=== PATIENT | female | born 1940 | race Caucasian/White ===

== ENCOUNTER → 2017-09-21 | Outpatient (CLI) | payer MEDICARE | LOC: GMAB 11:00 | PROVIDERS: ATTEND Family Medicine | DX: Z79.899 Other long term (current) drug therapy (principal) ==

== ENCOUNTER → 2017-10-11 | Outpatient (CLI) | payer MEDICARE ==
--- NOTE | 2017-10-12 11:19 | US ---
THYROID ULTRASOUND CLINICAL INFORMATION: Thyroid nodule. TECHNIQUE: Routine transcutaneous scannin-D and Doppler modes. COMPARISON: CT neck soft tissue with IV contrast 03/12/2014. FINDINGS: Thyroid size: Right 4.4 x 2.3 x 1.7 cm. Left 3.4 x 1.9 x 1.9 cm. Isthmus 0.79 mm width. Texture: Heterogeneous. Estimated total number of nodules >/=1 cm: 2 Number of spongiform nodules >/=2 cm not described below (TR1): 0 Number of mixed cystic and solid nodules >/=1.5 cm not described below (TR2): 0 Nodule #: 1 Maximum size: 1.7 cm; All dimensions 1.2 x 1.1 cm Location: right; mid Composition: solid/almost completely solid (2) Echogenicity: hypoechoic (2) Shape: not [id number] (0) Margins: lobulated/irregular (2) Echogenic foci: none (0) ACR TI-RADS total points: 6. ACR TI-RADS risk category: TR4 (4-6 points) No comparison ultrasound examination. ACR TI-RADS recommendation: Ultrasound-guided fine needle aspiration Nodule #: 2 Maximum size: 0.8 cm; All dimensions 0.6 x 0.6 cm Location: right; upper Composition: solid/almost completely solid (2) Echogenicity: hypoechoic (2) Shape: not [id number] (0) Margins: smooth (0) Echogenic foci: none (0) ACR TI-RADS total points: 4. ACR TI-RADS risk category: TR4 (4-6 points) No comparison ultrasound examination. ACR TI-RADS recommendation: No further follow-up Nodule #: 3 Maximum size: 1.5 cm; All dimensions 1.3 x 0.7 cm Location: isthmus; mid Composition: solid/almost completely solid (2) Echogenicity: hypoechoic (2) Shape: not [id number] (0) Margins: smooth (0) Echogenic foci: none (0) ACR TI-RADS total points: 4. ACR TI-RADS risk category: TR4 (4-6 points) No comparison ultrasound examination. ACR TI-RADS recommendation: Ultrasound-guided fine needle aspiration Soft tissue around the thyroid gland unremarkable with no distinct solid mass or cyst, no parenchymal edema or large calcifications. Normal Doppler vascularity. IMPRESSION: 1. Hypoechoic solid nodule in the mid right lobe with smooth margins, parallel orientation, and no calcifications. ACR TI-RADS risk category TR 4. Due to size greater than 1.5 cm, ultrasound-guided fine-needle aspiration sampling is recommended. Please see below.* 2. Hypoechoic solid nodule in the isthmus with smooth margins, parallel orientation, and no calcifications. ACR TI-RADS risk category TR 4. Due to size 1.5 cm. Ultrasound-guided fine-needle aspiration sampling is recommended. 3. Normal ultrasound of the soft tissue around the thyroid gland. *ACR TI-RADS recommendations: TR5 (>/=7 points) - FNA if >/=1 cm, follow-up if 0.5 - 0.9 cm every year for 5 years TR4 (4-6 points) - FNA if >/=1.5 cm, follow-up if 1 - 1.4 cm in 1, 2, 3 and 5 years TR3 (3 points) - FNA if >/=2.5 cm, follow -up if 1.5 - 2.4 cm in 1, 3 and 5 years TR2 (2 points) and TR1 (0 points) - No FNA or follow-up * ACR TI-RADS recommends that no more than two nodules with the highest ACR TI-RADS total point should be biopsied and no more than four nodules should be followed. Electronically signed by: Karel Dickson MD 10/12/2017 11:17 AM CDT
--- NOTE | 2017-10-12 12:53 | MAM ---
EXAM DESCRIPTION: 3D Screening BILATERAL : Digital Mammography. CLINICAL HISTORY: 77 years Female SCREENING . No complaints. No family history breast cancer. Postmenopausal. HRT 5 or more years ago. Possible surgery right breast previously.. COMPARISON: 2-D digital screening bilateral study 05/16/2016. Thyroid ultrasound on this visit. Reports from prior examinations also reviewed. TECHNIQUE: Bilateral CC and MLO projection full-field images, 3-D tomosynthesis digital mammographic technique. Also bilateral synthesized CC/ MLO full-field images. CAD not utilized. FINDINGS: The breast parenchymal density pattern is: Heterogeneously dense breast tissue, which may obscure small masses. No skin thickening or nipple retraction bilateral vascular calcifications. Bilateral solitary microcalcifications and coarse calcifications. No focal, stellate mass or density, focal asymmetry , and no suspicious microcalcifications bilaterally. Stable mammograms compared to prior study, taking into account differences in mammographic technique IMPRESSION: BI-RADS CATEGORY: 2 - BENIGN FINDINGS. FOLLOW UP: Routine digital bilateral screening, one year interval from October 2017. Written communication explaining the IMPRESSION and follow-up, will be mailed to the patient and referring health care provider. According to the [employer], yearly mammograms are recommended starting at age 40 and continuing as long as a woman is in good health. Any breast change noted on a breast self-exam should be reported promptly to the patient's healthcare provider. Breast MRI is recommended for women with an approximately 20-25% or greater lifetime risk of breast cancer, including women with a strong family history of breast or ovarian cancer and women who have been treated for Hodgkin's disease. A negative mammographic report should not delay tissue diagnosis in patients with significant clinical history or physical findings. Extremely dense breast tissue limits the sensitivity of digital mammography. Electronically signed by: Karel Dickson MD 10/12/2017 12:51 PM CDT
== END ==
LOC: US 08:57
PROVIDERS: ATTEND Family Medicine
DX: Z12.31 Encounter for screening mammogram for malignant neoplasm of breast (principal); E04.1 Nontoxic single thyroid nodule

== ENCOUNTER → 2018-11-27 | Outpatient (CLI) | payer MEDICARE ==
--- NOTE | 2018-12-03 16:22 | MAM ---
EXAM DESCRIPTION: 3D Screening BILATERAL : Digital Mammography. CLINICAL HISTORY: 78 years Female ANNUAL SCREENING . No complaints. No personal or family history of breast cancer. Childbirth. Postmenopausal. HRT 5 or more years ago. Prior benign cyst aspiration. Lifetime risk of developing breast cancer (Tyrer-Cuzick model)(%): 2.6. COMPARISON: Bilateral screening digital breast tomosynthesis 10/11/2017. 2-D digital screening bilateral mammography 05/16/2016.. TECHNIQUE: Bilateral CC and MLO projection full-field images, digital tomosynthesis mammographic technique. Bilateral digital 2-D full-field MLO images. CAD not available for tomosynthesis or 2-D images. FINDINGS: The breast parenchymal density pattern is: Extremely dense breast tissue, which lowers the sensitivity of mammography. No skin thickening or nipple retraction. Multiple bilateral solitary microcalcifications. Bilateral vascular calcifications. Increase in fibroglandular densities bilaterally more right than left in relationship to the fatty tissues. No new focal, stellate mass or density, focal asymmetry , and no suspicious microcalcifications bilaterally. IMPRESSION: BI-RADS CATEGORY: 0 - INCOMPLETE- Need additional imaging evaluation. FOLLOW-UP: Recall for additional imaging: Bilateral diagnostic full field LM images. Targeted bilateral breast ultrasound if indicated by diagnostic images.. Written communication concerning the IMPRESSION and Follow-up, will be mailed to the patient and referring health care provider. Electronically signed by: Karel Dickson MD 12/03/2018 4:20 PM CDT
== END ==
LOC: GMAE 09:30
PROVIDERS: ATTEND Family Medicine
DX: Z12.31 Encounter for screening mammogram for malignant neoplasm of breast (principal); E04.1 Nontoxic single thyroid nodule; Z79.899 Other long term (current) drug therapy

== ENCOUNTER → 2018-12-19 | Outpatient (CLI) | payer MEDICARE ==
--- NOTE | 2018-12-20 20:06 | MAM ---
EXAM DESCRIPTION: 3D Diagnostic, Bilateral (accession [id number]), Breast,Bilateral (accession [id number]): Ultrasound CLINICAL HISTORY: 78 yearsFemaleABN MAMMO . Patient complains of palpable mass between the breast. Bilateral breast showing increased fibroglandular densities compared to the previous screening study in 2016. Patient has lost 30-35 pounds since the prior mammogram in 2016. COMPARISON: Bilateral screening digital breast tomosynthesis 06/29/2018. TECHNIQUE: Bilateral LM projection full-field images, digital mammographic tomosynthesis technique. Craniocaudal cleavage view bilateral breast. CAD not available . Transcutaneous scanning of the mid chest and cleavage between the breasts utilizing de leon-scale and Doppler modes. Scanning performed by the analytical laboratory technician and Dr. Dickson. FINDINGS: The breast parenchymal density pattern is: Extremely dense breast tissue, which lowers the sensitivity of mammography. Bilateral solitary and vascular calcifications. No new focal, stellate mass or density, focal asymmetry , and no suspicious microcalcifications bilaterally. Ultrasound: Scanning of the cleavage region between the breasts where patient feels a mass. Fatty subcutaneous tissue, fascia, and the sternum are visualized. No dominant soft tissue mass or distinct cyst. No large calcification. No parenchymal edema. IMPRESSION: Benign exam. BIRAD CATEGORY: 2 BENIGN FINDINGS. RECOMMENDATIONS: FOLLOW UP: Return to routine digital bilateral mammographic screening, one year interval from November 2018. Written communication explaining the IMPRESSION and follow-up, will be mailed to the patient and referring health care provider. According to the [employer], yearly mammograms are recommended starting at age 40 and continuing as long as a woman is in good health. Any breast change noted on a breast self-exam should be reported promptly to the patient's healthcare provider. Breast MRI is recommended for women with an approximately 20-25% or greater lifetime risk of breast cancer, including women with a strong family history of breast or ovarian cancer and women who have been treated for Hodgkin's disease. A negative mammographic report should not delay tissue diagnosis in patients with significant clinical history or physical findings. Extremely dense breast tissue limits the sensitivity of digital mammography. Electronically signed by: Karel Dickson MD 12/20/2018 8:04 PM CDT
== END ==
LOC: US 10:00
PROVIDERS: ATTEND Family Medicine
DX: R92.2 Inconclusive mammogram (principal)
CPT/HCPCS: 76641; 77066; G0279

== ENCOUNTER → 2020-05-13 | Outpatient (CLI) | payer OTHER | LOC: GMAE 16:36 | PROVIDERS: ATTEND Family Medicine | DX: J06.9 Acute upper respiratory infection, unspecified (principal) ==